=== PATIENT | male | born 1970 | race Caucasian/White ===

== ENCOUNTER 2023-06-09 09:19 | Day surgery (SDC) | payer OTHER ==
--- NOTE | 2023-06-08 13:19 | NUR ---
PHONE CALL TO PT NO ANSWER AND LEFT MESSAGE. [phone]
[~2023-06-09] VITALS: Ht 188 cm; Wt 91.8 kg
[~2023-06-09 09:19] MED LIST: ALEVE220 M1 PO; KETOROLAC TROME10 MG PO
[2023-06-09 09:47] VITALS: BP 138/78
[2023-06-09] MEDS ORDERED: CEFUROXIME250 MG PO (11:31)
[2023-06-09] MEDS ORDERED: HYDROCODON-ACE1 EA11 PO (11:32)
[2023-06-09] MEDS ORDERED: DICLOFENAC SODI75 MG PO (11:32)
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
[2023-06-09 12:13] VITALS: BP 144/81
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
[2023-06-09 13:06] VITALS: BP 135/78
--- NOTE | 2023-06-09 13:07 | NUR ---
IN PT ROOM FOR VS AND ASSESSMENT. PT IS RESTING W/EYES CLOSED, RESPIRATIONS EVEN AND UNLABORED, PT EASILY AWAKENS TO VERBAL STIMULI AT THIS TIME. PT REPORTS NO PAIN OR NAUSEA. PT TAKES SMALL SIP OF SODA W/OUT DIFFICULTY SWALLOWING. DRESSING IS C/D/I, NO SIGNS OF BLEEDING AT THIS TIME, CMS INTACT. PT REPORTS NO N/T AT THIS TIME. ICE PACK, ELEVATION, AND SCD'S IN PLACE. CALL LIGHT WITHIN REACH, PT REPORTS NO FURTHER NEEDS AT THIS TIME.
[2023-06-09 14:00] VITALS: BP 142/85
--- NOTE | 2023-06-09 14:00 | NUR ---
IN PT ROOM, CALL LIGHT ANSWERED. HAS ARRIVED AND PT REPORTS URGE TO URINE VOID. PT STANDS AT BEDSIDE AND VOIDS 550 ML CLEAR/YELLOW URINE. PT REPORTS OCCASIONAL PING OF PAIN THAT RATES 5/10, BUT STATES NO NEED FOR PRN PAIN MED AT THIS TIME. PT GETTING DRESSED AT THIS TIME W/'S ASSISTANCE. CALL LIGHT WITHIN REACH, THIS RN OUTSIDE ROOM.
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
--- NOTE | 2023-06-09 14:20 | NUR ---
2 GM TXA ARRIVES AND INFUSING AT THIS TIME. CALL LIGHT WITHIN REACH, NO FURTHER NEEDS AT THIS TIME.
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
== END 2023-06-09 15:00 | disposition home or self-care (01) ==
LOC: DS 09:19 → EDSTATUS 13:45 → DS 15:00
PROVIDERS: ATTEND Specialist
PROC: 0MBP0ZZ Excision of Left Knee Bursa and Ligament, Open Approach (ICD-10-PCS; principal; 2023-06-09 13:45)
DX: M70.42 Prepatellar bursitis, left knee (principal)
CPT/HCPCS: 01320; 87070; 87075; 87205; J0131; J0690; J1100; J1885; J2001; J2405; J2704; J2795; J3010; J7121

== ENCOUNTER 2024-04-01 20:57 | Emergency (ER) | payer OTHER ==
[~2024-04-01] VITALS: Ht 188 cm; Wt 97.5 kg
[~2024-04-01 20:57] MED LIST changes: +CEFUROXIME250 MG PO; +DICLOFENAC SODI75 MG PO; +HYDROCODON-ACE1 EA11 PO
[2024-04-01] MEDS ORDERED: AMOXICILLIN/CLAVULANATE K 875 MG HOME.PACK PO ONE (21:30)
[2024-04-01] MEDS ORDERED: DIPHTH,PERTUSS(ACELL),TET VAC 0.5 ML SYRINGE IM ONE (22:15)
[2024-04-01] MEDS ORDERED: HYDROCODONE BIT/ACETAMINOPHEN 5/325 MG 1 TAB HOME.PACK PO ONE (22:15)
[2024-04-01] MEDS ORDERED: AMOX TR-K CLV1 EAC1 PO (22:45)
[2024-04-01 22:47] VITALS: BP 137/79
== END 2024-04-01 22:45 | disposition home or self-care (01) ==
LOC: ED 20:57
DX: T23.242A Burn of second degree of multiple left fingers (nail), including thumb, initial encounter (principal); T23.101A Burn of first degree of right hand, unspecified site, initial encounter; Z87.891 Personal history of nicotine dependence; X08.8XXA Exposure to other specified smoke, fire and flames, initial encounter; Z23 Encounter for immunization
CPT/HCPCS: 90471; 90715; 99283-25; A9270

== ENCOUNTER 2024-08-19 11:41 | Emergency (ER) | payer OTHER ==
[~2024-08-19] VITALS: Ht 188 cm; Wt 85.6 kg
[~2024-08-19 11:41] MED LIST changes: +AMOX TR-K CLV1 EAC1 PO
[2024-08-19] MEDS ORDERED: PROPRANOLOL HCL40 MG PO (13:19)
[2024-08-19] MEDS ORDERED: [UNRECOGNIZED DRUG - OTHER] (13:20)
[2024-08-19 14:26] VITALS: BP 154/97
== END 2024-08-19 14:20 | disposition home or self-care (01) ==
LOC: ED 11:41
DX: S90.31XA Contusion of right foot, initial encounter (principal); V09.9XXA Pedestrian injured in unspecified transport accident, initial encounter; Z87.891 Personal history of nicotine dependence; Z79.899 Other long term (current) drug therapy
CPT/HCPCS: 73630; 99283

== ENCOUNTER 2024-11-18 17:05 | Emergency (ER) | payer OTHER ==
[~2024-11-18] VITALS: Ht 188 cm; Wt 88.9 kg
[~2024-11-18 17:05] MED LIST changes: +PROPRANOLOL HCL40 MG PO; +[UNRECOGNIZED DRUG - OTHER]
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
[2024-11-18] MEDS ORDERED: MELOXICAM15 MG PO (17:26)
[2024-11-18] MEDS ORDERED: BEET ROOT-TART1 EACH PO (17:27)
[2024-11-18 17:37] LABS: BASOPHILS 0.1 % (0.2-1.2); EOSINOPHILS 0 % (0.8-7.0); LYMPHOCYTES 16.2 % (21.8-53.1); MCH 30.1 PG (25.7-32.2); MCHC 33.7 g/dL (32.3-36.5); MCV 89.5 fL (79.0-92.2); MONOCYTES 9.7 % (5.3-12.2); NEUTROPHILS 73.4 % (34.0-67.9); RBC 4.38 M/uL (4.63-6.08)
[2024-11-18] MEDS ORDERED: SODIUM CHLORIDE 0.9% 2,500 ML IV PRN (17:45)
[2024-11-18] MEDS ORDERED: MORPHINE SULFATE 10 MG/ML VIAL IV ONE (17:45)
[2024-11-18 17:52] LABS: INR 1.07 (0.80-1.30); PROTIME 13.2 Sec (11.2-14.2)
[2024-11-18 17:56] LABS: ALT (SGPT) 30.0 U/L (14-59); AST (SGOT) 26.0 U/L (15-37); GLOMERULAR FILTRATION RATE,EST 90.0 mL/min (>60); PROTEIN, TOTAL 8.2 g/dL (6.4-8.2); UREA NITROGEN 21.0 mg/dL (7-18)
[2024-11-18 18:01] LABS: LACTIC ACID, BLOOD 1.1 mmol/L (0.4-2.0)
[2024-11-18 18:51] LABS: BLOOD/HGB, URINE TRACE-I (Negative); KETONE, URINE SMALL (Negative); LEUK ESTERASE, URINE SMALL (negative); NITRITE, URINE POSITIVE (negative)
[2024-11-18 18:59] LABS: BACTERIA, URINE 4+ /hpf (negative); CASTS, URINE NONE SEEN \\lpf; CRYSTALS, URINE NONE SEEN (0-1+); EPITHELIAL CELLS, URINE SQUAMOUS 1+ /lpf (0-1+); REFLEX CULTURE, URINE Yes (No)
[2024-11-18] MEDS ORDERED: DAPTOmycin 500 MG/10 ML VIAL IV ONE (20:00)
[2024-11-18] MEDS ORDERED: HYDROmorphone HCL 1 MG/ML SYR IV ONE (20:30)
[2024-11-19] MEDS ORDERED: LEVOFLOXACIN750 MG PO (00:05)
[2024-11-19] MEDS ORDERED: HYDROCODON-ACE1 EA10 PO (00:05)
[2024-11-19] MEDS ORDERED: DOXYCYCLINE HY100 MG PO (00:05)
[2024-11-19] MEDS ORDERED: HYDROCODONE BIT/ACETAMINOPHEN 5/325 MG 1 TAB HOME.PACK PO ONE (00:15)
[2024-11-19 00:45] VITALS: BP 131/85
[2024-11-19] MEDS ORDERED: IBUPROFEN 600 MG TAB PO ONE (00:45)
[2024-11-19] MEDS ORDERED: ACETAMINOPHEN 500 MG TAB PO ONE (00:45)
--- NOTE | 2024-11-20 12:58 | EKG ---
[facility] [address] [facility] [place] [address] Signed Normal sinus rhythm Normal ECG When compared with ECG of 08-JUN-2023 11:08, Vent. rate has increased BY 30 BPM Confirmed by Naseem Guerrero DO ([id number]) on 11/20/2024 12:58:04 PM Electronically Signed By: NASEEM GUERRERO DO 11/20/24 1258 PATIENT NAME: MIKO DRAKE ENMANUEL Electrocardiogram DATE OF : 72 PHYSICIAN: NASEEM GUERRERO DO REPORT #: [id number] REPORT IS CONFIDENTIAL AND NOT TO BE RELEASED WITHOUT AUTHORIZATION
== END 2024-11-19 00:45 | disposition home or self-care (01) ==
LOC: ED 17:05
PROVIDERS: Emergency Medicine
DX: N39.0 Urinary tract infection, site not specified (principal); L03.116 Cellulitis of left lower limb; R53.1 Weakness; I10 Essential (primary) hypertension; Z79.899 Other long term (current) drug therapy; Z87.891 Personal history of nicotine dependence
CPT/HCPCS: 36415; 71045; 73590; 74177; 80053; 81001; 83605; 85025; 85610; 85651; 85730; 86140; 87040; 87088; 87186; 93005; 93010; 96375; 99285-25; A9270; J0696; J0878; J1171; J2270